=== PATIENT | male | born 1975 | race Caucasian/White ===

== ENCOUNTER → 2018-09-06 | Outpatient (CLI) | payer OTHER ==
--- NOTE | 2018-09-06 14:47 | RADIOLOGY REPORT (SQ) ---
EXAM DESCRIPTION: VENOUS UNILATERAL LOWER COMPLETED DATE/TIME: 09/06/2018 1:58 pm REASON FOR STUDY: LEFT LEG PAIN M79.662 PAIN IN LEFT LOWER LEG COMPARISON: None. TECHNIQUE: Dynamic and static sandhu scale and color images acquired of the left leg venous system. Se lected spectral images acquired with additional compression and augmentation maneuvers. The contralat eral common femoral vein and saphenofemoral junction were also imaged. Images stored on PACS. LIMITATIONS: None. FINDINGS: COMMON FEMORAL: Normal phasicity, compression and augmentation. No visualized echogenic ma terial on sandhu scale. No defects on color images. FEMORAL: Normal compression and augmentation. No visualized echogenic material on sandhu scale. No defe cts on color images. POPLITEAL: Normal compression, augmentation. No visualized echogenic material on sandhu scale. No defec ts on color images. CALF VESSELS: The posterior tibia and peroneal vessels are suboptimally visualized. GSV and SSV: Normal compression, augmentation. No visualized echogenic material on sandhu scale. No def ects on color images. ANY DEEP VENOUS INSUFFICIENCY: Not evaluated. ANY EVIDENCE OF POPLITEAL CYST: No. OTHER: Mildly edematous changes involving the left lower extremity. CONTRALATERAL COMMON FEMORAL VEIN AND SAPHENOFEMORAL JUNCTION: Normal phasicity, compression and augmentation. No visualized echogenic material on sandhu scale. No de fects on color images. IMPRESSION: 1. No evidence of DVT or SVT involving the left lower extremity. 2. Mild soft tissue edema. TECHNICAL DOCUMENTATION: JOB ID: [id number] [employer]- All Rights Reserved Reading location - IP/workstation name: [email or web address]
--- NOTE | 2018-09-06 15:45 | RADIOLOGY REPORT (SQ) ---
EXAM DESCRIPTION: KNEE LEFT 3 VIEWS COMPLETED DATE/TIME: 09/06/2018 1:57 pm REASON FOR STUDY: M25.562 PAIN OF LEFT KNEE M79.662 PAIN IN LEFT LOWER LEG COMPARISON: None. NUMBER OF VIEWS: Four views. TECHNIQUE: AP, lateral, and both oblique radiographic images acquired of the left knee. LIMITATIONS: None. FINDINGS: MINERALIZATION: Normal. BONES: No acute fracture or dislocation. No worrisome bone lesions. JOINT: No effusion. SOFT TISSUES: No soft tissue swelling. No radio-opaque foreign body. OTHER: No other significant finding. IMPRESSION: 1. No acute osseous findings. TECHNICAL DOCUMENTATION: JOB ID: [id number] [employer]- All Rights Reserved Reading location - IP/workstation name: [email or web address]
== END ==
LOC: SP 13:38
PROVIDERS: ATTEND Physician Assistant
DX: M79.662 Pain in left lower leg (principal); M25.562 Pain in left knee
CPT/HCPCS: 93971

== ENCOUNTER 2018-12-28 19:12 | Emergency (ER) | payer OTHER ==
[2018-12-28] MEDS ORDERED: ONDANSETRON HCL INJ/PF 4 MG/2 ML SDV IV ONE (20:27)
[2018-12-28] MEDS ORDERED: ASPIRIN 81 MG TABLET, CHEWABLE PO ONE (20:27)
--- NOTE | 2018-12-28 20:27 | ER Document Report ---
ED Cardiac - General Chief Complaint: Chest Pain Stated Complaint: CHEST PAIN Time Seen by Provider: 12/28/18 20:15 Primary Care Provider: ROSARIO ZEPEDA PA-C [Primary Care Provider] - Follow up tomorrow Notes: Patient is a 43-year-old male who presents emergency department with a chief complaint of a rapid heart rate, chest pain, nausea, and weakness. His symptoms started this morning while he is at work. Nothing makes his symptoms better or worse. He feels he has more of a tightness in his chest. He has a history of diabetes and hypertension. Last time he saw his department editor and had a stress test was 3-4 years ago. TRAVEL OUTSIDE OF THE [place] IN LAST 30 DAYS: No - Related Data Allergies/Adverse Reactions: No Known Allergies Allergy (Verified 12/28/12 18:23) Past Medical History - Social History Smoking Status: Never Smoker Family History: Reviewed & Not Pertinent - Past Medical History Cardiac Medical History: Reports: Hx Hypercholesterolemia, Hx Hypertension Endocrine Medical History: Reports: Hx Diabetes Mellitus Type 2 GI Medical History: Reports: Hx Gastroesophageal Reflux Disease Past Surgical History: Reports: Hx Orthopedic Surgery - right knee - Immunizations Hx Diphtheria, Pertussis, Tetanus Vaccination: Yes Review of Systems - Review of Systems Notes: REVIEW OF SYSTEMS: CONSTITUTIONAL : Denies recent illness. Denies recent unintentional weight loss. Denies fever, chills, or sweats. EENT: Denies eye, ear, throat, or mouth pain, discharge, or symptoms. Denies nasal or sinus congestion. CARDIOVASCULAR: See HPI RESPIRATORY: Denies shortness of breath, cough, congestion, difficulty breathi ng, or wheezing. GASTROINTESTINAL: Denies nausea, vomiting, and diarrhea. Denies abdominal pain. Denies constipation. GENITOURINARY: Denies difficulty urinating, burning, blood in urine, urgency or frequency. MUSCULOSKELETAL: Denies neck and back pain. Denies joint pain or swelling. SKIN: Denies rash, itchiness, or lesions HEMATOLOGIC : Denies easy bruising or bleeding. LYMPHATIC: Denies swollen, painful, enlarged glands. NEUROLOGICAL: Denies no numbness or tingling denies weakness. Denies headache. Denies altered mental status. Denies alteration in speech. PSYCHIATRIC: Denies stress, anxiety, alteration in sleep patterns, or depression. All other systems reviewed and negative. Physical Exam - Vital signs Vitals: Resp Pulse Ox 18 96 02/05/19 20:16 12/28/18 20:16 - Notes Notes: PHYSICAL EXAMINATION: GENERAL: Appears well, healthy, well-nourished, no acute distress. HEAD: Normocephalic, atraumatic. EYES: PERRL, conjunctiva normal, all extraocular movements intact, sclera nonicteric ENT: Moist mucous membranes. NECK: Supple, no noticeable swelling, redness, rash. Normal range of motion. LUNGS: Equal breath sounds bilaterally and clear to auscultation. No wheezes rales or rhonchi. CARDIOVASCULAR: S1-S2, tachycardia, regular rhythm. Radial pulses 2+, normal. PVCs noted on bedside monitor. ABDOMEN: Normoactive bowel sounds. Soft, nontender, no guarding, no rebound tenderness, and no masses palpated. EXTREMITIES: Normal strength and range of motion, no pitting or edema. No cyanosis. NEUROLOGICAL: Moves all extremities upon command. Strength 5/5 in all extremities. PSYCH: Normal mood, normal affect. SKIN: Warm, dry. Flushed skin, in which she states this is normal. Course - Re-evaluation Re-evalutation: 12/28/18 21:53 The patient's first troponin is 0.023. He will have another troponin drawn at 2330. His checks x-ray shows cardiomegaly but no pneumonia noted. His other labs are unremarkable. HEART Score: History:1 EC Age:0 Risk Factors:3 Troponin:0 Total: 1 12/29/18 00:55 Patient's second troponin has trended down, but based off of his history and risk factors, I strongly suggest that he did not admitted for chest pain rule out. I have spoke with the patient and he is in agreement with this plan. 12/29/18 01:[address] Hagan, the hospitalist buyer liaison. He will assess the patient. 12/29/18 01:[address] with Dr. Hagan and the patient has decided not to be admitted to the hospital and he would like to follow up with [place] [facility]ology in the morning. I have given very strict discharge instructions to the patient and return precautions. He is to follow-up with his primary care provider. He is to return to the emergency department if he has any chest pain, shortness of breath, nausea, vomiting, or any other chest pain symptoms. Verbal discharge instructions were given to the patient. They verbalized understanding. They are stable for discharge. - Vital Signs Vital signs: Temp Pulse Resp BP Pulse Ox 98.5 F 94 18 142/89 H 94 12/29/18 02:01 12/29/18 02:01 12/29/18 02:01 12/29/18 02:01 12/29/18 02:01 - Laboratory Result Diagrams: 12/28/18 20:31 12/28/18 20:31 Laboratory results interpreted by me: 12/28/18 12/28/18 12/28/18 20:31 20:31 20:31 RDW 14.3 H Glucose 175 H NT-Pro-B Natriuret Pep 258 H Discharge - Discharge Clinical Impression: Nausea Chest pain Qualifiers: Chest pain type: unspecified Qualified Code(s): R07.9 - Chest pain, unspecified Condition: Stable Disposition: HOME, SELF-CARE Additional Instructions: You were seen today in the emergency department for chest pain. You have decided to not be admitted to the hospital. Because you do not want to be admitted, please follow-up with the department editor in [place] tomorrow. Please follow-up with your primary care provider in the morning. If you have any chest pain, shortness of breath, chest tightness, weakness, palpitations, or any symptoms that are worrisome to you, please return to the emergency department. Referrals: ROSARIO ZEPEDA PA-C [Primary Care Provider] - Follow up tomorrow
[2018-12-28 20:38] LABS: ABSOLUTE BASOPHILS # (AUTO) 0.1 10^3/uL (0.0-0.2); ABSOLUTE EOSINOPHILS # (AUTO) 0.3 10^3/uL (0.0-0.6); ABSOLUTE LYMPHOCYTES (AUTO) 1.9 10^3/uL (0.5-4.7); ABSOLUTE MONOCYTES (AUTO) 0.8 10^3/uL (0.1-1.4); BASOPHILS % (AUTO) 0.7 % (0-2); EOSINOPHILS % (AUTO) 3.7 % (0-6); HEMATOCRIT 40.6 % (37.9-51.0); HEMOGLOBIN 14.3 g/dL (13.5-17.0); LYMPHOCYTES % (AUTO) 23.1 % (13-45); MEAN CORPUSCULAR HEMOGLOBIN 28.4 pg (27.0-33.4); MEAN CORPUSCULAR HGB CONC 35.2 g/dL (32.0-36.0); MEAN CORPUSCULAR VOLUME 81 fl (80-97); MONOCYTES % (AUTO) 10.4 % (3-13); PLATELET COUNT 223 10^3/uL (150-450); RED BLOOD COUNT 5.03 10^6/uL (4.35-5.55); RED CELL DISTRIBUTION WIDTH 14.3 % (11.5-14.0); SEGMENTED NEUTROPHILS % (AUTO) 62.1 % (42-78); TOTAL CELLS COUNTED % (AUTO) 100 %
[2018-12-28 20:51] LABS: ALANINE AMINOTRANSFERASE 66 U/L (21-72); ALBUMIN 4.4 g/dL (3.5-5.0); ALKALINE PHOSPHATASE 124 U/L (38-126); ANION GAP 11 (5-19); ASPARTATE AMINO TRANSFERASE 42 U/L (17-59); BILIRUBIN,DIRECT 0.1 mg/dL (0.0-0.4); BILIRUBIN,TOTAL 0.4 mg/dL (0.2-1.3); BLOOD UREA NITROGEN 20 mg/dL (7-20); CALCIUM 9.3 mg/dL (8.4-10.2); CARBON DIOXIDE 29 mmol/L (22-30); CHLORIDE 98 mmol/L (98-107); CREATINE KINASE 65 U/L (55-170); GLUCOSE 175 mg/dL (75-110); POTASSIUM 3.6 mmol/L (3.6-5.0); SODIUM 138.2 mmol/L (137-145)
--- NOTE | 2018-12-28 21:02 | RADIOLOGY REPORT (SQ) ---
EXAM DESCRIPTION: XR CHEST 1 VIEW COMPLETED DATE/TME: 12/28/2018 20:25 CLINICAL HISTORY: 43 years, Male, chest pain COMPARISON: None. NUMBER OF VIEWS: 1 TECHNIQUE: Portable AP chest LIMITATIONS: None. FINDINGS: Cardiomegaly. Osteopenia. Mild elevation of the right hemidiaphragm. Lungs are clear. No pneumothorax IMPRESSION: Cardiomegaly. Lungs are clear copyright 2011 [employer]- All Rights Reserved
[2018-12-28 21:03] LABS: CREATINE KINASE MB 0.99 ng/mL (<4.55); TROPONIN I 0.023 ng/mL
[2018-12-29 02:02] VITALS: BP 142/89
--- NOTE | 2018-12-29 03:00 | PDOC CONSULTATION ---
Consultation Consult Date: 12/29/18 Attending physician:: WYATT BAKER Consult reason:: Chest pain History of Present Illness Admission Date/PCP: ROSARIO ZEPEDA PA-C Patient complains of: Chest pain History of Present Illness: MANDIE MARQUEZ is a 43 year old male who presents the emergency room with an acute history of chest pain. He indicates that his chest pain began at approximately 10 AM on the morning of 12/28/2018 and continued until it resolved spontaneously at approximately 2 PM on the same day. Over that 4-hour period, his pain first began as a mild to moderate dull aching pressure in his mid back and posterior left shoulder area and then moved around his chest to the front part of his chest where for the last half an hour to an hour he had a mild to moderate pressure-like sensation in his substernal region as if he needed to burp or belch. After the pain spontaneously resolved he noted that he began to have nausea and also felt a fluttering sensation in his chest like his heart was beating rapidly or perhaps skipping beats. He asked his mother to come and check his pulse and she reported that his pulse was 99 which they felt was very high and that his heartbeat seemed to be irregular in some way that she could not will describe. He denies prior similar episodes and had not identified any aggravating or ameliorating factors for his chest discomfort. In the emergency room he was found to have minimally elevated serum troponin levels which were essentially unchanged upon repeat evaluation after six hours. His EKG showed no changes consistent with ischemia or myocardial injury. His pain remained resolved. 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 As the patient has remained very stable throughout his entire course in the emergency room it was felt that it was appropriate to allow him to be discharged and follow-up with physician of choice as discussed. Past Medical History Cardiac Medical History: Reports: Hyperlipidema, Hypertension Denies: Coronary Artery Disease, DVT, Pulmonary Embolism Pulmonary Medical History: Denies: Asthma, Chronic Obstructive Pulmonary Disease (COPD) EENT Medical History: Reports: None Neurological Medical History: Denies: Hemorrhagic CVA, Ischemic CVA, Seizures Endocrine Medical History: Reports: Diabetes Mellitus Type 2, Obesity Denies: Diabetes Mellitus Type 1, Hyperthyroidism, Hypothyroidism Renal/ Medical History: Denies: Chronic Kidney Disease, Nephrolithiasis Malignancy Medical History: Reports: None GI Medical History: Reports: Gastroesophageal Reflux Disease Denies: Cirrhosis, Hepatitis Musculoskeltal Medical History: Denies: Arthritis, Gout Skin Medical History: Denies: Eczema, Psoriasis Psychiatric Medical History: Reports: Tobacco Dependency Denies: Alcohol Dependency, Substance Abuse Traumatic Medical History: Reports: Other - Spider bite left lower extremity Hematology: Denies: Anemia, Bleeding Tendencies Infectious Medical History: Reports: None Past Surgical History Past Surgical History: Reports: Orthopedic Surgery - right knee, Other - Nasal surgery for nasal fracture Social History Information Source: Patient Lives with: Family Smoking Status: Former Smoker Frequency of Alcohol Use: Rare Hx Recreational Drug Use: No Drugs: None Hx Prescription Drug Abuse: No - Advance Directive Resuscitation Status: Full Code Surrogate healthcare decision maker:: Mother Family History Family History: CAD, DM, Hypertension. denies: Malignancy Parental Family History Reviewed: Yes Children Family History Reviewed: No Sibling(s) Family History Reviewed.: Yes Medication/Allergy Home Medications: Acetaminophen with Codeine [Tylenol with Codeine #3 Tablet] 1 - 2 tab PO Q4 PRN #30 tab 12/28/12 Amlodipine Besylate 10 mg PO DAILY 12/28/12 Aspirin [Ecotrin 81 mg EC Tablet] 81 mg PO DAILY 12/28/12 Azithromycin [Zithromax 250 mg Tablet] 250 mg PO DAILY 4 Days tablet 12/28/12 Benazepril HCl [Lotensin 40 mg Tablet] 40 mg PO DAILY 12/28/12 Clonidine HCl [Kapvay] 0.1 mg PO BID PRN 12/28/12 Hydrochlorothiazide 50 mg PO DAILY 12/28/12 Metformin HCl [Glucophage 1000 mg Tablet] 1,000 mg PO BID 12/28/12 Metoprolol Succinate [Toprol Xl 50 mg Tab.sr] 50 mg PO DAILY 12/28/12 Omeprazole 20 mg PO BID 12/28/12 Paroxetine HCl [Paxil 20 Mg Tablet] 20 mg PO DAILY 12/28/12 Paroxetine HCl [Paxil] 10 mg PO 12/28/12 Potassium Chloride [Klor-Con 10 Meq Tablet.sa] 10 meq PO BID 12/28/12 Pravastatin Sodium [Pravachol] 20 mg PO DAILY 12/28/12 Prednisone [Deltasone 20 mg Tablet] 3 tab PO DAILY 4 Days tablet 12/28/12 Promethazine HCl 25 mg PO Q6HP PRN 12/28/12 Quinine Sulfate [Qualaquin 324 Mg Capsule] 324 mg PO DAILY 12/28/12 Simvastatin [Zocor 20 mg Tablet] 20 mg PO QHS 12/28/12 Victoza 1.2 mg SQ DAILY 12/28/12 Allergies/Adverse Reactions: No Known Allergies Allergy (Verified 12/28/12 18:23) Review of Systems Constitutional: ABSENT: chills, fever(s) Eyes: ABSENT: visual disturbances, other - Ocular pain Ears: ABSENT: hearing changes, other - Ear pain Nose, Mouth, and Throat: ABSENT: mouth pain, sore throat Cardiovascular: PRESENT: as per HPI, chest pain, palpitations. ABSENT: dyspnea on exertion, orthropnea Respiratory: ABSENT: cough, dyspnea Gastrointestinal: PRESENT: nausea. ABSENT: abdominal pain, constipation, diarrhea, vomiting Genitourinary: ABSENT: dysuria, hematuria Musculoskeletal: PRESENT: other - Chronically swollen left lower extremity status post spider bite. ABSENT: deformity, joint swelling Integumentary: ABSENT: pruritus, rash Neurological: ABSENT: confusion, convulsions, memory loss, tremor(s) Psychiatric: ABSENT: anxiety, depression Endocrine: ABSENT: cold intolerance, heat intolerance Hematologic/Lymphatic: ABSENT: easy bleeding, easy bruising Physical Exam Vital Signs: Temp Pulse Resp BP Pulse Ox 98.5 F 94 18 142/89 H 94 12/29/18 02:01 12/29/18 02:01 12/29/18 02:01 12/29/18 02:01 12/29/18 02:01 General appearance: PRESENT: no acute distress, cooperative, obese Head exam: PRESENT: atraumatic, normocephalic Eye exam: PRESENT: conjunctiva pink, EOMI. ABSENT: scleral icterus Ear exam: PRESENT: normal external ear exam. ABSENT: bleeding, drainage Mouth exam: PRESENT: dry mucosa, neck supple Neck exam: ABSENT: JVD, thyromegaly, tracheal deviation Respiratory exam: PRESENT: clear to auscultation chris, symmetrical, unlabored Cardiovascular exam: PRESENT: RRR. ABSENT: clicks, diastolic murmur, gallop, rubs, systolic murmur Pulses: PRESENT: normal radial pulses, normal dorsalis pedis pul Vascular exam: PRESENT: normal capillary refill. ABSENT: pallor GI/Abdominal exam: PRESENT: normal bowel sounds, soft Rectal exam: PRESENT: deferred Extremities exam: PRESENT: +2 edema - Left lower extremity with compression stocking to hip. ABSENT: joint swelling Musculoskeletal exam: ABSENT: deformity, dislocation Neurological exam: PRESENT: alert, oriented to person, oriented to place, oriented to time, oriented to situation, CN II-XII grossly intact. ABSENT: motor sensory deficit Psychiatric exam: PRESENT: appropriate affect, normal mood Skin exam: PRESENT: dry, intact, warm. ABSENT: jaundice, rash, urticaria Results Laboratory Results: 12/28/18 20:31 12/28/18 20:31 12/28/18 12/28/18 20:31 20:31 WBC 8.0 RBC 5.03 Hgb 14.3 Hct 40.6 MCV 81 MCH 28.4 MCHC 35.2 RDW 14.3 H Plt Count 223 Seg Neutrophils % 62.1 Lymphocytes % 23.1 Monocytes % 10.4 Eosinophils % 3.7 Basophils % 0.7 Absolute Neutrophils 5.0 Absolute Lymphocytes 1.9 Absolute Monocytes 0.8 Absolute Eosinophils 0.3 Absolute Basophils 0.1 Sodium 138.2 Potassium 3.6 Chloride 98 Carbon Dioxide 29 Anion Gap 11 BUN 20 Creatinine 0.80 Est GFR ( Amer) > 60 Est GFR (Non-Af Amer) > 60 Glucose 175 H Calcium 9.3 Total Bilirubin 0.4 AST 42 ALT 66 Alkaline Phosphatase 124 Total Protein 7.0 Albumin 4.4 12/28/18 12/28/18 12/28/18 20:31 20:31 23:35 Creatine Kinase 65 CK-MB (CK-2) 0.99 Troponin I 0.023 0.019 NT-Pro-B Natriuret Pep 258 H Impressions: Chest X-Ray 12/28/18 20:25 IMPRESSION: Cardiomegaly. Lungs are clear copyright 2011 [employer]- All Rights Reserved Assessment & Plan - Diagnosis (1) Chest pain Qualifiers: Chest pain type: unspecified Qualified Code(s): R07.9 - Chest pain, unspecified Is this a current diagnosis for this admission?: Yes Plan: Chest pain does not appear to be cardiogenic in origin. Given the patient's risk factors it would be advisable that he would have a cardiology follow-up and a cardiac stress test done in the very near future preferably within the next 24-48 hours. I have discussed with patient and his family the results of this test and our recommendations including the offer to hospitalize him on observation status and perform a cardiac stress test this morning. 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 With this understanding I feel it is reasonable for the patient be discharged to home. (2) Hypertension Qualifiers: Hypertension type: essential hypertension Qualified Code(s): I10 - Essential (primary) hypertension Is this a current diagnosis for this admission?: Yes Plan: Recommend the patient continue on his current antihypertensive regiment unless changed by his rn field. (3) Diabetes mellitus type 2 in obese Is this a current diagnosis for this admission?: Yes Plan: Recommend the patient continue with his current diabetic regiment was changed by his primary care provider. (4) Nausea Is this a current diagnosis for this admission?: Yes Plan: Patient's nausea has resolved at this point time. If his nausea returns I have advised him that he should return to the emergency room for further evaluation as this may be a harbinger of other medical problems such as coronary ischemia. - Time Time Spent: 30 to 50 Minutes Smoking Cessation Education: 3 to 10 minutes Anticipated discharge: Home - Plan Summary Plan Summary: Discharged home in stable condition with plan to follow-up with cardiology later this morning for further evaluation.
--- NOTE | 2018-12-29 22:58 | EKG REPORT ---
SEVERITY:- ABNORMAL ECG - SINUS TACHYCARDIA VENTRICULAR PREMATURE COMPLEX PROBABLE LEFT ATRIAL ABNORMALITY RBBB AND LAFB CONSIDER ANTEROSEPTAL INFARCT : Confirmed by: Ceci Tom 29-Dec-2018 22:57:40
== END 2018-12-29 02:02 | disposition home or self-care (01) ==
LOC: ER 19:12
DX: R07.89 Other chest pain (principal); I11.9 Hypertensive heart disease without heart failure; R74.8 Abnormal levels of other serum enzymes; R11.0 Nausea; R53.1 Weakness; R23.2 Flushing; E11.9 Type 2 diabetes mellitus without complications; Z87.891 Personal history of nicotine dependence
CPT/HCPCS: 93005; 99285; 96374; 36415; 82553; 82550; 85025; 80053; 84484; 83880; 71045; 93010; J2405